=== PATIENT | female | born 1995 | race African-American/Black ===

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

== ENCOUNTER 2018-01-29 23:36 | Emergency (ER) | payer BC ==
--- NOTE | 2018-01-30 | ED ---
Nausea/Vomiting/Diarrhea HPI - HPI Summary HPI Summary: Patient found on the sidewalk outside of a house constitution party in [facility]. Brought by EMS to the ED. EMS started an IV gave IV fluids. Patient has vomited 3 times, is now sleeping in exam room. No evidence of trauma. - History of Current Complaint Chief Complaint: EDSubstanceAbuse Stated Complaint: ETOH Time Seen by Provider: 01/29/18 23:43 Onset/Duration: Lasting Hours Severity Currently: None Pain Intensity: 0 Nausea/Vomiting Presence: Nauseated, Vomiting Diarrhea Presence: No - Allergies/Home Medications Allergies/Adverse Reactions: Allergies Allergy/AdvReac Type Severity Reaction Status Date / Time Unable to Assess Allergy Verified 01/29/18 23:57 PMH/Surg Hx/FS Hx/Imm Hx Endocrine/Hematology History: Denies: Hx Anticoagulant Therapy Cardiovascular History: Denies: Hx Cardiac Arrest History: Denies: Hx Dialysis Neurological History: Denies: Hx CVA Infectious Disease History: Unable to Obtain/Confirm Infectious Disease History: Denies: Traveled Outside the in Last 30 Days - Social History Alcohol Use: unknown Substance Use Type: Reports: Other Substance Use Comment - Amount & Last Used: unknown Smoking Status (MU): Unknown if Ever Smoked Review of Systems Constitutional: Negative Eyes: Negative ENT: Negative Cardiovascular: Negative Respiratory: Negative Positive: Vomiting, Nausea Genitourinary: Negative Musculoskeletal: Negative Skin: Negative Neurological: Negative Psychological: Normal All Other Systems Reviewed And Are Negative: Yes Physical Exam Triage Information Reviewed: Yes Vital Signs On Initial Exam: Initial Vitals Temp Pulse Resp BP Pulse Ox 97.5 F 112 22 92/66 100 01/29/18 23:46 01/29/18 23:46 01/29/18 23:46 01/29/18 23:46 01/29/18 23:46 Vital Signs Reviewed: Yes Appearance: Positive: Well-Appearing Skin: Positive: Warm Head/Face: Positive: Normal Head/Face Inspection Eyes: Positive: Normal Neck: Positive: Supple Respiratory/Lung Sounds: Positive: Clear to Auscultation Cardiovascular: Positive: Normal Abdomen Description: Positive: Nontender Musculoskeletal: Positive: Normal Neurological: Positive: Normal Psychiatric: Positive: Normal AVPU Assessment: Alert - Gause Coma Scale Best Eye Response: 4 - Spontaneous Best Motor Response: 6 - Obeys Commands Best Verbal Response: 5 - Oriented Coma Scale Total: 15 Diagnostics - Vital Signs Vital Signs Temp Pulse Resp BP Pulse Ox 01/29/18 23:46 97.5 F 112 22 92/66 100 - Laboratory Lab Statement: Any lab studies that have been ordered have been reviewed, and results considered in the medical decision making process. Naus/Vom/Diarrhea Course/Dx - Course Course Of Treatment: Patient found on the sidewalk outside of a house [employer] [place] and [employer]. Brought by EMS to the ED. EMS started an IV gave IV fluids. Patient has vomited 3 times, is now sleeping in exam room. No evidence of trauma. Patient sleeping in exam room. Vital signs are stable within normal limits. No active vomiting. - Differential Dx/Diagnosis Provider Diagnoses: EtOH intoxication Condition At Discharge: Stable Discharge - Sign-Out/Discharge Documenting (check all that apply): Sign-Out Patient Signing out patient TO: Alberto Easton Receiving patient FROM: Gama Amanda - Discharge Plan Condition: Stable Disposition: HOME Patient Education Materials: Alcohol Intoxication (ED) - Billing Disposition and Condition Condition: STABLE Disposition: Home - Attestation Statements Document Initiated by Scribe: No
--- NOTE | 2018-01-30 06:10 | ED ---
Progress - Progress Note Progress Note: Patient was signed out from Gama Amanda upon shift change pending disposition. Course/Dx - Course Course Of Treatment: Patient found on the sidewalk outside of a house green party in [facility]. Brought by EMS to the ED. EMS started an IV gave IV fluids. Patient has vomited 3 times, is now sleeping in exam room. No evidence of trauma. Patient sleeping in exam room. Vital signs are stable within normal limits. No active vomiting. Discharge - Sign-Out/Discharge Documenting (check all that apply): Receiving Sign-Out Receiving patient FROM: Gama Amanda - Upon shift change - Discharge Plan Condition: Improved Disposition: HOME Patient Education Materials: Alcohol Intoxication (ED) Referrals: [facility] [Outside] [facility] [Outside] - Attestation Statements Document Initiated by Scribe: Yes Documenting Scribe: Xiomara Elliott Provider For Whom Scribe is Documenting (Include Credential): Alberto Easton MD Scribe Attestation: IXiomara, scribed for Alberto Easton MD on 01/30/18 at 0611.
[2018-01-30 07:49] VITALS: BP 117/79
== END 2018-01-30 07:47 | disposition home or self-care (01) ==
LOC: EDSEX → EDBD 23:36 → MERGE 23:36 → ED 23:36
DX: F10.129 Alcohol abuse with intoxication, unspecified (principal); R11.2 Nausea with vomiting, unspecified
CPT/HCPCS: 99283

== ENCOUNTER → 2018-02-20 00:29 | Emergency (ER) | payer BC ==
[~2018-02-20 00:29] MED LIST: Ibuprofen TAB* 800 MG PO ONE; Sulfamethox/Trimethoprim DS 800/160* TAB PO ONE
--- NOTE | 2018-02-20 01:27 | ED ---
Abdominal Pain/Female - HPI Summary HPI Summary: This patient is a 22 year old F presenting to [facility] with a chief complaint of left and right lower ABD pain for the last 3 days. The patient rates the pain 6/ 10 in severity. Patient denies fever, urinary sx, and n/v/d. Similar sx several years ago dx kidney infection. - History of Current Complaint Chief Complaint: EDGeneral Stated Complaint: ABD PAIN Time Seen by Provider: 02/20/18 01:22 Hx Obtained From: Patient Onset/Duration: Lasting Days - 3, Still Present Timing: Constant Severity Initially: Moderate Severity Currently: Moderate Pain Intensity: 6 Pain Scale Used: 0-10 Numeric Location: Discrete At: RLQ, Discrete At: LLQ, Suprapubic Associated Signs and Symptoms: Negative: Fever, Urinary Symptoms, Nausea, Vomiting, Diarrhea Allergies/Adverse Reactions: Allergies Allergy/AdvReac Type Severity Reaction Status Date / Time No Known Allergies Allergy Verified 02/20/18 00:41 Home Medications: Home Medications NK [No Home Medications Reported] 02/20/18 [History Confirmed 02/20/18] PMH/Surg Hx/FS Hx/Imm Hx Endocrine/Hematology History: Denies: Hx Anticoagulant Therapy, Hx Sickle Cell Disease, Hx Thyroid Disease Cardiovascular History: Denies: Hx Cardiac Arrest Respiratory History: Denies: Hx Pulmonary Edema, Hx Pulmonary Embolism, Hx Seasonal Allergies History: Denies: Hx Dialysis Musculoskeletal History: Denies: Hx Back Problems, Hx Bursitis Neurological History: Denies: Hx CVA Infectious Disease History: No Infectious Disease History: Denies: Traveled Outside the [place] in Last 30 Days - Family History Known Family History: Negative: Cardiac Disease, Hypertension, Diabetes, Renal Disease, Respiratory Disease, Seizure Disorder, Blood Disorder - Social History Occupation: Student Alcohol Use: Rare Substance Use Type: Reports: None Substance Use Comment - Amount & Last Used: unknown Smoking Status (MU): Unknown if Ever Smoked Review of Systems Negative: Fever Positive: Abdominal Pain. Negative: Vomiting, Diarrhea, Nausea Positive: no symptoms reported All Other Systems Reviewed And Are Negative: Yes Physical Exam - Summary Physical Exam Summary: VITAL SIGNS: Reviewed. GENERAL: Patient is a well-developed and nourished female who is lying comfortable in the stretcher. Patient is not in any acute respiratory distress. HEAD AND FACE: No signs of trauma. No ecchymosis, hematomas or skull depressions. No sinus tenderness. EYES: PERRLA, EOMI x 2, No injected conjunctiva, no nystagmus. EARS: Hearing grossly intact. Ear canals and tympanic membranes are within normal limits. MOUTH: Oropharynx within normal limits. NECK: Supple, trachea is midline, no adenopathy, no JVD, no carotid bruit, no c- spine tenderness, neck with full ROM. CHEST: Symmetric, no tenderness at palpation LUNGS: Clear to auscultation bilaterally. No wheezing or crackles. CVS: Regular rate and rhythm, S1 and S2 present, no murmurs or gallops appreciated. ABDOMEN: Soft, non-tender. No signs of distention. No rebound no guarding, and no masses palpated. Bowel sounds are normal. EXTREMITIES: FROM in all major joints, no edema, no cyanosis or clubbing. NEURO: Alert and oriented x 3. No acute neurological deficits. Speech is normal and follows commands. SKIN: Dry and warm Triage Information Reviewed: Yes Vital Signs On Initial Exam: Initial Vitals Temp Pulse Resp BP Pulse Ox 98.3 F 89 16 117/64 100 02/20/18 00:38 02/20/18 00:38 02/20/18 00:38 02/20/18 00:38 02/20/18 00:38 Vital Signs Reviewed: Yes Diagnostics - Vital Signs Vital Signs Temp Pulse Resp BP Pulse Ox 02/20/18 00:38 98.3 F 89 16 117/64 100 - Laboratory Lab Statement: Any lab studies that have been ordered have been reviewed, and results considered in the medical decision making process. Abdominal Pain Fem Course/Dx - Course Course Of Treatment: This patient is a 22 year old F presenting to [facility] with a chief complaint of left and right lower ABD pain for the last 3 days. The patient rates the pain 6/10 in severity. Patient denies fever, urinary sx, and n /v/d. Similar sx several years ago dx kidney infection. UA showed UTI. In the ED course the patient was given Bactrim. Patient will be discharged with prescription for bactrim and follow up from PCP. The patient is agreeable with this plan. - Diagnoses Provider Diagnoses: UTI (urinary tract infection) Discharge - Sign-Out/Discharge Documenting (check all that apply): Patient Departure - Discharge Plan Condition: Stable Disposition: HOME Patient Education Materials: Urinary Tract Infection in Women (DC) Referrals: [facility] [place] [facility] [Outside] Additional Instructions: RETURN TO THE EMERGENCY DEPARTMENT FOR CHANGING OR WORSENING SYMPTOMS. FOLLOW UP WITH PCP IN - Attestation Statements Document Initiated by Scribe: Yes Documenting Scribe: Pb Sanabria Provider For Whom Scribe is Documenting (Include Credential): Yvon Rubin MD Scribe Attestation: Pb Alvarado , scribed for Yvon Rubin MD on 02/20/18 at 0205.
[2018-02-20 01:45] LABS: Urine Appearance Clear; Urine Blood 1+ (Negative); Urine Color Yellow; Urine Ketones Negative (Negative); Urine Protein Negative (Negative); Urine Red Blood Cell 1+(3-5/hpf) (Absent); Urine Specific Gravity 1.012 (1.010-1.030); Urine Urobilinogen Negative (Negative); Urine White Blood Cell 3+(>20/hpf) (Absent)
[2018-02-20 02:25] VITALS: BP 103/82
--- NOTE | 2018-02-23 07:45 | ED ---
Progress - Progress Note Progress Note: Patient's final urine culture reveals 75-100,000 Escherichia coli. Patient was started on Bactrim to which organism is sensitive. No change in treatment at this time. Course/Dx - Course Course Of Treatment: This patient is a 22 year old F presenting to [facility] with a chief complaint of left and right lower ABD pain for the last 3 days. The patient rates the pain 6/10 in severity. Patient denies fever, urinary sx, and n /v/d. Similar sx several years ago dx kidney infection. UA showed UTI. In the ED course the patient was given Bactrim. Patient will be discharged with prescription for bactrim and follow up from PCP. The patient is agreeable with this plan. - Diagnoses Provider Diagnoses: UTI (urinary tract infection) Discharge - Sign-Out/Discharge Documenting (check all that apply): Post-Discharge Follow Up - Discharge Plan Condition: Stable Disposition: HOME Prescriptions: Sulfamethox/Trimethoprim DS* [Bactrim DS 800/160 TAB*] 1 tab PO BID #14 tab Patient Education Materials: Urinary Tract Infection in Women (DC) Referrals: [facility] [place] [facility] [place]Outside] Additional Instructions: RETURN TO THE EMERGENCY DEPARTMENT FOR CHANGING OR WORSENING SYMPTOMS. FOLLOW UP WITH PCP IN - Billing Disposition and Condition Condition: STABLE Disposition: Home
== END | disposition home or self-care (01) ==
LOC: ED 00:29
DX: N39.0 Urinary tract infection, site not specified (principal)
CPT/HCPCS: 81003; 81015; 87077; 87086; 87186; 99282; A9270-GY

== ENCOUNTER 2019-02-25 17:42 | Emergency (ER) | payer BC ==
[2019-02-25 18:00] VITALS: BP 106/70
--- NOTE | 2019-02-25 18:18 | UC ---
Complaint Female HPI - HPI Summary HPI Summary: Patient is a 23-year-old female who presents to the urgent care with a chief complaint of having vaginal discomfort, redness, rash, clear discharge, and burning and urination. Patient is be having the symptoms for the last couple days. She finished her menstrual cycle yesterday and today the symptoms are worsening. She reports sexual activity with protection before her menstrual cycle oriented with one partner. 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 She reports that she's been having oral sex in the last couple weeks. She denies abdominal pain nausea vomiting diarrhea constipation. She denies any fever or chills. She has no other complaints - History Of Current Complaint Chief Complaint: UCGU Stated Complaint: POSSIBLE UTI Time Seen by Provider: 02/25/19 17:50 Hx Obtained From: Patient Hx Last Menstrual Period: 02/21/19 Onset/Duration: Gradual Onset Timing: Constant Severity Initially: Mild Severity Currently: Moderate Pain Intensity: 7 - Allergies/Home Medications Allergies/Adverse Reactions: Allergies Allergy/AdvReac Type Severity Reaction Status Date / Time No Known Allergies Allergy Verified 02/25/19 18:00 Home Medications: Home Medications ISOtretinoin [Isotretinoin] 60 mg PO 02/25/19 [History] PMH/Surg Hx/FS Hx/Imm Hx Previously Healthy: Yes Other History Of: Negative For: Anticoagulant Therapy - Surgical History Surgical History: None - Family History Known Family History: Positive: None, Non-Contributory Negative: Cardiac Disease, Hypertension, Diabetes, Renal Disease, Respiratory Disease, Seizure Disorder, Blood Disorder - Social History Alcohol Use: Occasionally Substance Use Type: None Substance Use Comment - Amount & Last Used: unknown Smoking Status (MU): Never Smoked Tobacco Review of Systems All Other Systems Reviewed And Are Negative: Yes Constitutional: Positive: Negative Skin: Positive: Negative Eyes: Positive: Negative ENT: Positive: Negative Respiratory: Positive: Negative Cardiovascular: Positive: Negative Gastrointestinal: Positive: Negative Genitourinary: Positive: Dysuria, Frequency, Urgency, Vaginal/Penile Discharge, Vaginal/Penile Pain Motor: Positive: Negative Neurovascular: Positive: Negative Musculoskeletal: Positive: Negative Neurological: Positive: Negative Psychological: Positive: Negative Is Patient Immunocompromised?: No Physical Exam - Summary Physical Exam Summary: VITAL SIGNS: Reviewed. GENERAL: Patient is a well developed and nourished female who is lying comfortably in the examining table. Patient is not in any acute respiratory distress. HEAD AND FACE: Normocephalic and atraumatic. EYES: PERRLA, EOMI x 2, No injected conjunctiva. EARS: Hearing grossly intact. Ear canals and tympanic membranes are WNL. MOUTH: Oropharynx within normal limits. NECK: Supple, trachea is midline, no adenopathy, no JVD. CHEST: Symmetric, no tenderness at palpation LUNGS: Clear to auscultation bilaterally. No wheezing or crackles. CVS: RRR, S1 and S2 present, no murmurs or gallops appreciated. ABDOMEN: Soft, non-tender. No signs of distention. Positive bowel sounds. No rebound no guarding, and no masses palpated. No abdominal bruits or pulsations. EXTREMITIES: FROM in all major joints, no edema, no cyanosis or clubbing. NEURO: Alert and oriented x 3. No acute neurological deficits. Speech is normal. 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 External genitalia: within normal limits. No rashes, lesions or ecchymosis. Speculum exam: vaginal lind with no lesions, masses, or rashes. Cervix normal. No CMTs. No adnexal masses. All cultures were collected and send to the lab. Vital Signs: Initial Vital Signs Temp 98.0 F 02/25/19 17:55 Pulse 74 02/25/19 17:55 Resp 18 02/25/19 17:55 BP 106/70 02/25/19 17:55 Pulse Ox 100 02/25/19 17:55 Complaint Female Dx - Course Course Of Treatment: I did send to the lab vaginal cultures, for GC, chlamydia, got an enema, yeast, and herpes simplex 1 and 2. At this time unable to recognize the etiology of the vaginal burning. We will await for the test results. Further treatment. Urinalysis with positive leukocytes medically secondary to UTI. Patient will be given a prescription for ciprofloxacin for 150 mg twice daily for 3 days. She also was given lidocaine topical for discomfort. The patient she'll follow-up with the primary care physician in the next 2-3 days. She was recommended to follow with the emergency department if the symptoms worsen. She understands and agrees. - Differential Dx/Diagnosis Provider Diagnosis: UTI (urinary tract infection), Vaginal discharge Discharge ED - Sign-Out/Discharge Documenting (check all that apply): Patient Departure All imaging exams completed and their final reports reviewed: No Studies - Discharge Plan Condition: Stable Disposition: HOME Prescriptions: Ciprofloxacin TAB* [Cipro 250 MG Tab*] 250 mg PO BID #6 tab Lidocaine 2% JELLY* 1 applic TOPICAL TID PRN #30 gm PRN Reason: Pain - Mild Patient Education Materials: Urinary Tract Infection in Women (ED), Vaginal Discharge (ED) Referrals: No Primary Care Phys,NOPCP [Primary Care Provider] - [facility] [place] [facility] [Outside] Additional Instructions: Take medications as instructed Increase your fluid intake F/U with PCP in the next 2-3 days Return to the UC if symptoms worsen - Billing Disposition and Condition Condition: STABLE Disposition: Home
[2019-02-27 13:47] LABS: Chlamydia trachomatis NAA Negative (Negative); Neisseria gonorrhoeae (GC) NAA Negative (Negative)
[2019-02-27 16:22] LABS: Herpes Source VAGINAL
--- NOTE | 2019-02-27 17:50 | UC ---
- Progress Note Progress Note: no growth urine culture no change [facility] Course/Dx - Diagnoses Provider Diagnoses: UTI (urinary tract infection), Vaginal discharge Discharge ED - Sign-Out/Discharge Documenting (check all that apply): Post-Discharge Follow Up All imaging exams completed and their final reports reviewed: No Studies - Discharge Plan Condition: Stable Disposition: HOME Prescriptions: Ciprofloxacin TAB* [Cipro 250 MG Tab*] 250 mg PO BID #6 tab Lidocaine 2% JELLY* 1 applic TOPICAL TID PRN #30 gm PRN Reason: Pain - Mild Patient Education Materials: Urinary Tract Infection in Women (ED), Vaginal Discharge (ED) Referrals: [facility] [place] [facility] [Outside] No Primary Care Phys,NOPCP [Primary Care Provider] - Additional Instructions: Take medications as instructed Increase your fluid intake F/U with PCP in the next 2-3 days Return to the UC if symptoms worsen - Billing Disposition and Condition Condition: STABLE Disposition: Home
== END 2019-02-25 18:40 | disposition home or self-care (01) ==
LOC: UCEAST 17:42
DX: N39.0 Urinary tract infection, site not specified (principal); N89.8 Other specified noninflammatory disorders of vagina
CPT/HCPCS: 81003; 84702; 87086; 87480; 87491; 87510; 87529; 87591; 87661; 99212; G0463